=== PATIENT | male | born 1935 | race Caucasian/White ===

== ENCOUNTER → 2020-07-16 | Outpatient (CLI) | payer OTHER | LOC: HYPER 13:50 | PROVIDERS: ATTEND Emergency Medicine | DX: E11.622 Type 2 diabetes mellitus with other skin ulcer (principal); L97.812 Non-pressure chronic ulcer of other part of right lower leg with fat layer exposed; L97.822 Non-pressure chronic ulcer of other part of left lower leg with fat layer exposed; E11.42 Type 2 diabetes mellitus with diabetic polyneuropathy; E11.22 Type 2 diabetes mellitus with diabetic chronic kidney disease; I12.9 Hypertensive chronic kidney disease with stage 1 through stage 4 chronic kidney disease, or unspecified chronic kidney disease; N18.30 Chronic kidney disease, stage 3 unspecified; R60.0 Localized edema; E78.5 Hyperlipidemia, unspecified; M10.9 Gout, unspecified; J31.0 Chronic rhinitis; I48.0 Paroxysmal atrial fibrillation; Z79.84 Long term (current) use of oral hypoglycemic drugs; Z79.01 Long term (current) use of anticoagulants; Z85.46 Personal history of malignant neoplasm of prostate; Z79.899 Other long term (current) drug therapy; Z87.891 Personal history of nicotine dependence ==

== ENCOUNTER → 2020-07-23 | Outpatient (CLI) | payer OTHER | LOC: SJCVCIMAG 07:45 | PROVIDERS: ATTEND Nuclear Medicine Nuclear Cardiology | DX: I70.203 Unspecified atherosclerosis of native arteries of extremities, bilateral legs (principal); M79.661 Pain in right lower leg; M79.662 Pain in left lower leg ==

== ENCOUNTER → 2020-07-23 | Outpatient (CLI) | payer OTHER | LOC: HYPER 15:04 | PROVIDERS: ATTEND Emergency Medicine | DX: E11.622 Type 2 diabetes mellitus with other skin ulcer (principal); L97.812 Non-pressure chronic ulcer of other part of right lower leg with fat layer exposed; L97.822 Non-pressure chronic ulcer of other part of left lower leg with fat layer exposed; R60.0 Localized edema; E11.42 Type 2 diabetes mellitus with diabetic polyneuropathy; E11.22 Type 2 diabetes mellitus with diabetic chronic kidney disease; I12.9 Hypertensive chronic kidney disease with stage 1 through stage 4 chronic kidney disease, or unspecified chronic kidney disease; N18.30 Chronic kidney disease, stage 3 unspecified; E11.51 Type 2 diabetes mellitus with diabetic peripheral angiopathy without gangrene; E78.5 Hyperlipidemia, unspecified; M10.9 Gout, unspecified; J31.0 Chronic rhinitis; I48.0 Paroxysmal atrial fibrillation; I87.2 Venous insufficiency (chronic) (peripheral); Z79.84 Long term (current) use of oral hypoglycemic drugs; Z79.01 Long term (current) use of anticoagulants; Z85.46 Personal history of malignant neoplasm of prostate; Z79.899 Other long term (current) drug therapy; Z87.891 Personal history of nicotine dependence ==

== ENCOUNTER → 2020-08-01 | Outpatient (CLI) | payer OTHER ==
[~2020-08-01] VITALS: Ht 177.8 cm; Wt 74.8 kg
[~2020-08-01] MED LIST: ALLOPURINOL 10100 M3 PO; IRON325 M1 PO; JANTOVEN2.5 MG PO; KAPSPARGO SPRIN25 MG PO; LISINOPRIL20 MG PO; METFORMIN HCL500 MG PO; NEURONTIN 300M300 M2 PO; OMEGA-3 FISH1200 MG PO; PLAVIX 75 MG TA75 MG PO; PRAVASTATIN SOD80 MG PO; TORSEMIDE20 MG PO
[2020-08-01 08:50] VITALS: BP 156/70
[2020-08-01 09:04] LABS: HEMATOCRIT 27.4 % (42.0-52.0); HEMOGLOBIN 8.7 gm/dL (14.0-18.0); MCH 32.8 pg (26.0-34.0); MCHC 31.5 g/dL (28.0-37.0); RBC 2.64 mil/uL (4.50-6.00); RDW 19.6 % (10.5-14.5); WBC 8.6 thou/uL (4.0-11.0)
[2020-08-01 09:12] LABS: CALCIUM 10.4 mg/dL (8.5-10.1); POTASSIUM 3.9 mmol/L (3.5-5.1)
[2020-08-01 12:32] VITALS: BP 129/66
[2020-08-01 13:05] VITALS: BP 139/55
[2020-08-01 13:19] VITALS: BP 139/55
[2020-08-01 13:50] VITALS: BP 157/70
[2020-08-01 14:05] VITALS: BP 145/72
== END | disposition home or self-care (01) ==
LOC: CATH 07:52
PROVIDERS: ATTEND Nuclear Medicine Nuclear Cardiology
DX: I70.238 Atherosclerosis of native arteries of right leg with ulceration of other part of lower leg (principal); L97.919 Non-pressure chronic ulcer of unspecified part of right lower leg with unspecified severity; I70.1 Atherosclerosis of renal artery; I25.10 Atherosclerotic heart disease of native coronary artery without angina pectoris; I12.9 Hypertensive chronic kidney disease with stage 1 through stage 4 chronic kidney disease, or unspecified chronic kidney disease; E11.22 Type 2 diabetes mellitus with diabetic chronic kidney disease; N18.30 Chronic kidney disease, stage 3 unspecified; E11.40 Type 2 diabetes mellitus with diabetic neuropathy, unspecified; I48.92 Unspecified atrial flutter; M10.9 Gout, unspecified; F17.210 Nicotine dependence, cigarettes, uncomplicated; Z98.890 Other specified postprocedural states; Z79.899 Other long term (current) drug therapy; Z85.46 Personal history of malignant neoplasm of prostate; Z79.01 Long term (current) use of anticoagulants

== ENCOUNTER 2020-08-02 07:31 | Observation (INO) | payer OTHER ==
[~2020-08-02] VITALS: Ht 172.7 cm; Wt 76.2 kg
[2020-08-02 08:18] VITALS: BP 159/72
[2020-08-02 08:19] LABS: CALCIUM 10.4 mg/dL (8.5-10.1); CREATININE 1.8 mg/dL (0.7-1.3); POTASSIUM 3.8 mmol/L (3.5-5.1)
[2020-08-02 08:22] LABS: APTT 36.8 Seconds (24.5-32.8); INR 1.25; PROTIME 13.5 Seconds (10.5-12.1)
--- NOTE | 2020-08-02 17:16 | NUR ---
PT TO FINISH RECOVERY ON CCU. REPORT CALLED TO CCU RN. RECEIVING NURSE DENIES QUESTIONS OR CONCERNS REGARDING POC FOR THIS PT. PT'S DAUGHTER JACKIE HONG WAS CALLED AND EDUCATED ON ALL PT'S POST HOSPITAL CARES AND F/U. SHE DENIES QUESTIONS OR CONCERNS WELL. NO DISTRESS NOTED UPON TRANSFER. RIGHT GROIN SITE C/D/I AND FREE OF HEMATOMA.
--- NOTE | 2020-08-02 17:38 | NUR ---
RECEIVED PT FROM THE PLAN NURSE. PT HAD LERO THROUGH R GROIN, MYNX, C/D/I, NO HEMATOMA. PT HAS MYNX DRESSING FROM 08/01/20 FOR LERO, C/D/I, NO HEMATOMA. SOME RESIDUAL BRUISING UNRELATED TO LERO ON UPPER LEG. PT DTR TO PICK PT UP IN ONE (1) HOUR. DISCHARGE EDUCATION DONE BY CATH NURSE TO DTR OVER PHONE. PT HAS D/C PAPERWORK. PT DTR COMMUNICATED UNDERSTANDING. NO CONCERNS AT THIS TIME.
[2020-08-02 17:59] VITALS: BP 159/72
== END 2020-08-02 18:30 | disposition home or self-care (01) ==
LOC: CATH 07:31 → 2N 17:31
PROVIDERS: ADMIT Nuclear Medicine Nuclear Cardiology; ATTEND Nuclear Medicine Nuclear Cardiology
DX: I70.248 Atherosclerosis of native arteries of left leg with ulceration of other part of lower leg (principal); E11.51 Type 2 diabetes mellitus with diabetic peripheral angiopathy without gangrene; L97.829 Non-pressure chronic ulcer of other part of left lower leg with unspecified severity; I12.9 Hypertensive chronic kidney disease with stage 1 through stage 4 chronic kidney disease, or unspecified chronic kidney disease; E11.22 Type 2 diabetes mellitus with diabetic chronic kidney disease; N18.30 Chronic kidney disease, stage 3 unspecified; I48.92 Unspecified atrial flutter

== ENCOUNTER → 2020-08-13 | Outpatient (CLI) | payer OTHER | LOC: HYPER 08:36 | PROVIDERS: ATTEND Emergency Medicine | DX: E11.622 Type 2 diabetes mellitus with other skin ulcer (principal); L97.812 Non-pressure chronic ulcer of other part of right lower leg with fat layer exposed; L97.821 Non-pressure chronic ulcer of other part of left lower leg limited to breakdown of skin; R60.0 Localized edema; E11.42 Type 2 diabetes mellitus with diabetic polyneuropathy; E11.22 Type 2 diabetes mellitus with diabetic chronic kidney disease; I12.9 Hypertensive chronic kidney disease with stage 1 through stage 4 chronic kidney disease, or unspecified chronic kidney disease; N18.30 Chronic kidney disease, stage 3 unspecified; E11.51 Type 2 diabetes mellitus with diabetic peripheral angiopathy without gangrene; E78.5 Hyperlipidemia, unspecified; M10.9 Gout, unspecified; J31.0 Chronic rhinitis; I48.0 Paroxysmal atrial fibrillation; I87.2 Venous insufficiency (chronic) (peripheral); Z79.84 Long term (current) use of oral hypoglycemic drugs; Z79.01 Long term (current) use of anticoagulants; Z85.46 Personal history of malignant neoplasm of prostate; Z87.891 Personal history of nicotine dependence ==

== ENCOUNTER → 2020-11-01 | Outpatient (CLI) | payer OTHER | LOC: SJCVCIMAG 13:54 | PROVIDERS: ATTEND Nuclear Medicine Nuclear Cardiology | DX: I70.203 Unspecified atherosclerosis of native arteries of extremities, bilateral legs (principal); I65.23 Occlusion and stenosis of bilateral carotid arteries; I77.9 Disorder of arteries and arterioles, unspecified; I73.9 Peripheral vascular disease, unspecified; E78.00 Pure hypercholesterolemia, unspecified; I71.4 Abdominal aortic aneurysm, without rupture; M10.9 Gout, unspecified; E11.9 Type 2 diabetes mellitus without complications; Z87.891 Personal history of nicotine dependence; Z79.899 Other long term (current) drug therapy ==